=== PATIENT | male | born 1985 | race African-American/Black ===

== ENCOUNTER 2020-04-18 18:57 | Emergency (ER) | payer MEDICARE, MEDICAID ==
[2020-04-18] MEDS ORDERED: HYDROCODONE/ACETAMINOPHEN 5-325 MG TABLET PO ONE (20:27)
--- NOTE | 2020-04-18 20:29 | ER Document Report ---
HPI - HPI Patient complains to provider of: Ankle injury Time Seen by Provider: 04/18/20 20:23 Onset: Yesterday Onset/Duration: Sudden Quality of pain: Achy Pain Level: 2 Context: Patient states he was playing basketball yesterday and felt a snap in his left posterior ankle. Patient complains of pain that is gradually worsened since then. Associated Symptoms: denies: Vomiting Exacerbated by: Movement, Walking Relieved by: Denies Similar symptoms previously: No Recently seen / treated by doctor: No - ROS ROS below otherwise negative: Yes Systems Reviewed and Negative: Yes All other systems reviewed and negative - MUSCULOSKELETAL Musculoskeletal: REPORTS: Extremity pain. DENIES: Swelling - DERM Skin Color: Normal Skin Problems: None Past Medical History - General Information source: Patient - Social History Smoking Status: Current Every Day Smoker Frequency of alcohol use: Occasional Drug Abuse: None Occupation: [employer] Lives with: Family Family History: Reviewed & Not Pertinent Endocrine Medical History: Reports: Hx Diabetes Mellitus Type 2 Psychiatric Medical History: Reports: Hx Depression Traumatic Medical History: Reports: Hx Traumatic Brain Injury Past Surgical History: Reports: Hx Orthopedic Surgery - rt rotator cuff injury, collarbone - Immunizations Hx Diphtheria, Pertussis, Tetanus Vaccination: Yes - 2011 [facility] Provider Document - CONSTITUTIONAL Agree With Documented VS: Yes Exam Limitations: No Limitations General Appearance: WD/WN, No Apparent Distress - HEENT HEENT: Atraumatic, Normocephalic - NECK Neck: Normal Inspection - RESPIRATORY Respiratory: No Respiratory Distress - CARDIOVASCULAR Pulses: Normal: Dorsalis pedis - MUSCULOSKELETAL/EXTREMETIES Musculoskeletal/Extremeties: MAEW, Tender - Tenderness to left posterior ankle over Achilles tendon, Edema - 1+ edema to left ankle. negative: Eccymosis - NEURO Level of Consciousness: Awake, Alert, Appropriate Motor/Sensory: No Motor Deficit - DERM Integumentary: Warm, Dry, No Rash Course - Re-evaluation Re-evalutation: 04/18/20 21:37 Patient without any acute fracture although has tenderness over the Achilles tendon worrisome for possible tendinopathy, will immobilize and refer to orthopedics for further evaluation at this time. - Vital Signs Vital signs: Temp Pulse Resp BP Pulse Ox 99.7 F 111 H 20 168/134 H 93 04/18/20 19:13 04/18/20 19:13 04/18/20 19:13 04/18/20 19:13 04/18/20 19:13 - Diagnostic Test Radiology reviewed: Image reviewed, Reports reviewed Procedures - Immobilization Left Ankle Pre-Proc Neuro Vasc Exam: Normal Immobilizer type: Short Leg Posterior Performed by: PCT Post-Proc Neuro Vasc Exam: Normal Alignment checked and good: Yes Discharge - Discharge Clinical Impression: Left ankle pain Qualifiers: Chronicity: acute Qualified Code(s): M25.572 - Pain in left ankle and joints of left foot Achilles tendon injury Qualifiers: Encounter type: initial encounter Laterality: left Qualified Code(s): S86.002A - Unspecified injury of left Achilles tendon, initial encounter Condition: Stable Disposition: HOME, SELF-CARE Instructions: Use of Crutches ([facility]), Ice & Elevation ([facility]), Tendon Strain ([facility]) Additional Instructions: Return immediately for any new or worsening symptoms Followup with your primary care provider, call tomorrow to make a followup appointment Follow-up with orthopedics for further evaluation, call tomorrow to make a follow-up appointment Prescriptions: Naproxen [Naprosyn 250 Nmg Tablet] 1 tab PO BID #14 tablet Hydrocodone/Acetaminophen [[place] 5-325 mg Tablet] 1 tab PO Q6 PRN #8 tablet PRN Reason: Forms: Return to Work Referrals: SONIA CORRAL MD [ACTIVE PROVISIONAL STAFF] - Follow up as needed [facility] [Provider Group] - Follow up tomorrow [facility] [Provider Group] - Follow up tomorrow
--- NOTE | 2020-04-18 21:28 | RADIOLOGY REPORT (SQ) ---
EXAM DESCRIPTION: XR ANKLE 3 OR MORE VIEWS COMPLETED DATE/TME: 04/18/2020 20:27 CLINICAL HISTORY: 35 years, Male, left ankle pain EXAM DESCRIPTION: CLINICAL HISTORY: left ankle pain COMPARISON: None FINDINGS: 3 view(s) submitted. No fracture or dislocation is identified. Bone marrow attenuation is unremarkable. No radiopaque foreign body is identified. IMPRESSION: No acute fracture or dislocation.
[2020-04-18 21:59] VITALS: BP 181/98
== END 2020-04-18 21:58 | disposition home or self-care (01) ==
LOC: ER 18:57
DX: S86.002A Unspecified injury of left Achilles tendon, initial encounter (principal); M25.572 Pain in left ankle and joints of left foot; X58.XXXA Exposure to other specified factors, initial encounter; Y93.67 Activity, basketball; F17.200 Nicotine dependence, unspecified, uncomplicated; E11.9 Type 2 diabetes mellitus without complications
CPT/HCPCS: 99283; 73610; 29515; A9270

== ENCOUNTER → 2020-04-28 | Outpatient (CLI) | payer MEDICARE, MEDICAID ==
--- NOTE | 2020-04-28 12:22 | RADIOLOGY REPORT (SQ) ---
EXAM DESCRIPTION: MRI LT LOWER JOINT WITHOUT IMAGES COMPLETED DATE/TIME: 04/28/2020 11:58 am REASON FOR STUDY: (S86.012A)STRAIN OF LEFT ACHILLES TENDON, INITIAL ENCOUNTER S86.012A STRAIN OF LE FT ACHILLES TENDON, INITIAL ENCOUNTER COMPARISON: None. TECHNIQUE: Left ankle images acquired and stored on PACS. Multiplanar images include fat sensitive s equences as T1, fluid sensitive sequences as FST2/STIR, cartilage sensitive sequences as FSPD, and gr adient echo sequences. LIMITATIONS: None. FINDINGS: BONE MARROW: No alteration of signal to suggest marrow replacement or edema. No occult fra cture. No large osteophytes. EFFUSIONS: No subtalar or tibiotalar effusions. No loose bodies. OSSEOUS ARTICULATIONS: Normal tibiotalar, subtalar, talonavicular and calcaneocuboid joints. TALAR DOME AND TIBIAL PLAFOND: Normal cartilage. No osteochondral defect. ACHILLES TENDON: Complete rupture of the tendon about 6.5 cm proximal to the insertion. The proximal stump is at the edge of the [id number] with a gap of approximately 7 cm. No significant bursal f luid. TIBIALIS ANTERIOR TENDON: Intact without edema at the 1st MT attachment. TIBIALIS POSTERIOR TENDON: Normal morphology and no edema at the navicular attachment. No tendon meza th fluid. FLEXOR HALLUCIS LONGUS AND FLEXOR DIGITORUM TENDONS: Normal morphology and no tendon sheath fluid. No edema of the os trigonum. PERONEUS LONGUS AND BREVIS TENDON: Normal morphology and no tendon sheath fluid. No subluxation. ATFL, CFL, PTFL: Intact. No thickening or signal alteration. No jose-ligamentous fluid. DELTOID LIGAMENT: Visualized components intact. TARSAL TUNNEL: No masses. No muscle atrophy. SINUS TARSI: No fluid. No reactive marrow edema or erosions. PLANTAR FASCIA: No signal alteration or tear. ADJACENT SOFT TISSUES: No masses. OTHER: No other significant finding. IMPRESSION: Rupture of the Achilles tendon. TECHNICAL DOCUMENTATION: JOB ID: [id number] 2010 [employer]- All Rights Reserved Reading location - IP/workstation name: [email or web address]
== END ==
LOC: RAD 10:34
PROVIDERS: ATTEND Orthopaedic Surgery
DX: S86.012A Strain of left Achilles tendon, initial encounter (principal); X58.XXXA Exposure to other specified factors, initial encounter

== ENCOUNTER 2020-06-02 21:04 | Emergency (ER) | payer MEDICARE, MEDICAID ==
[2020-06-02] MEDS ORDERED: RINGERS SOLUTION,LACTATED 1,000 ML IV ONE (21:49)
[2020-06-02] MEDS ORDERED: ONDANSETRON HCL INJ/PF 4 MG/2 ML SDV IV ONE (21:50)
[2020-06-02] MEDS ORDERED: MORPHINE SULFATE 10 MG/ML INJ IV ONE (21:50)
--- NOTE | 2020-06-02 21:51 | ER Document Report ---
ED Medical Screen (RME) - General Chief Complaint: Abdominal Pain Stated Complaint: ABDOMINAL PAIN, VOMITING, LOSS OF APPETITE Time Seen by Provider: 06/02/20 21:43 Primary Care Provider: KATYA,JAZMÍN [Primary Care Provider] - Follow up as needed Mode of Arrival: Wheelchair Information source: Patient Notes: HPI; 85-year-old male presents emergency room complaining of sudden onset of abdominal pain with nausea and vomiting that started after eating his breakfast this morning. Denies any bad food. No one else at home is ill states is not been able to tolerate anything p.o. today. Denies any recent travel. No COVID- 19 exposure. Also complains of fevers with chills. Did not take any medications for his symptoms. PE: Alert and oriented x3. Mild distress noted. Lungs: Clear to auscultation without rales, rhonchi, wheezes. Heart tachycardic without murmurs, rubs, gallops. I have greeted and performed a rapid initial assessment of this patient. A com prehensive ED assessment and evaluation of the patient, analysis of test results and completion of the medical decision making process will be conducted by additional ED providers. I have specifically instructed the patient or family members with the patient to immediately return to any nursing staff should anything change in the patient's condition or with their chief complaint. TRAVEL OUTSIDE OF THE [place] IN LAST 30 DAYS: No - Related Data Allergies/Adverse Reactions: No Known Allergies Allergy (Verified 11/23/13 09:30) Past Medical History Endocrine Medical History: Reports: Hx Diabetes Mellitus Type 2 Psychiatric Medical History: Reports: Hx Depression Traumatic Medical History: Reports: Hx Traumatic Brain Injury Past Surgical History: Reports: Hx Orthopedic Surgery - rt rotator cuff injury, collarbone - Immunizations Hx Diphtheria, Pertussis, Tetanus Vaccination: Yes - 2011 Physical Exam - Vital signs Vitals: Temp Pulse Resp BP Pulse Ox 99.5 F 129 H 20 141/96 H 93 06/02/20 21:20 06/02/20 21:20 06/02/20 21:20 06/02/20 21:20 06/02/20 21:20 Course - Vital Signs Vital signs: Temp Pulse Resp BP Pulse Ox 99.5 F 129 H 20 141/96 H 93 06/02/20 21:20 06/02/20 21:20 06/02/20 21:20 06/02/20 21:20 06/02/20 21:20 Doctor's Discharge - Discharge Referrals: LOCALMD,NO [Primary Care Provider] - Follow up as needed
[2020-06-02 23:14] LABS: APPEARANCE,URINE CLEAR; BILIRUBIN,URINE NEGATIVE (NEGATIVE); COLOR,URINE YELLOW; GLUCOSE, URINE >=500 mg/dL (NEGATIVE); KETONES,URINE 80 mg/dL (NEGATIVE); LEUKOCYTE ESTERASE,URINE NEGATIVE (NEGATIVE); NITRITE,URINE NEGATIVE (NEGATIVE); PROTEIN,URINE 100 mg/dL (NEGATIVE); URINE SPECIFIC GRAVITY 1.033; UROBILINOGEN,URINE NEGATIVE mg/dL (<2.0)
[2020-06-02 23:19] LABS: ABSOLUTE BASOPHILS # (AUTO) 0.1 10^3/uL (0.0-0.2); ABSOLUTE EOSINOPHILS # (AUTO) 0.1 10^3/uL (0.0-0.6); ABSOLUTE LYMPHOCYTES (AUTO) 2.4 10^3/uL (0.5-4.7); ABSOLUTE MONOCYTES (AUTO) 0.9 10^3/uL (0.1-1.4); ABSOLUTE NEUT (AUTO) 9.5 10^3/uL (1.7-8.2); EOSINOPHILS % (AUTO) 0.4 % (0-6); HEMATOCRIT 45.2 % (37.9-51.0); LYMPHOCYTES % (AUTO) 18.3 % (13-45); MEAN CORPUSCULAR VOLUME 82 fl (80-97); MONOCYTES % (AUTO) 6.7 % (3-13); PLATELET COUNT 265 10^3/uL (150-450); RED BLOOD COUNT 5.55 10^6/uL (4.35-5.55); SEGMENTED NEUTROPHILS % (AUTO) 73.6 % (42-78); TOTAL CELLS COUNTED % (AUTO) 100 %; WHITE BLOOD COUNT 12.9 10^3/uL (4.0-10.5)
[2020-06-02 23:25] LABS: ALBUMIN 4.9 g/dL (3.5-5.0); ALKALINE PHOSPHATASE 112 U/L (38-126); ASPARTATE AMINO TRANSFERASE 51 U/L (17-59); BILIRUBIN,DIRECT 0.5 mg/dL (0.0-0.4); BLOOD UREA NITROGEN 11 mg/dL (7-20); CARBON DIOXIDE 11 mmol/L (22-30); CHLORIDE 99 mmol/L (98-107); GLUCOSE 337 mg/dL (75-110); POTASSIUM 5.4 mmol/L (3.6-5.0); TOTAL PROTEIN 9.4 g/dL (6.3-8.2)
[2020-06-02 23:33] LABS: ANION GAP 25 (5-19)
[2020-06-03 00:05] LABS: HEMOGLOBIN 15.1 g/dL (13.5-17.0); MEAN CORPUSCULAR HEMOGLOBIN 27.2 pg (27.0-33.4); MEAN CORPUSCULAR HGB CONC 33.4 g/dL (32.0-36.0)
[2020-06-03] MEDS ORDERED: ONDANSETRON HCL INJ/PF 4 MG/2 ML SDV IV ONE (01:45)
[2020-06-03] MEDS ORDERED: MORPHINE SULFATE 10 MG/ML INJ IV ONE (02:00)
[2020-06-03] MEDS ORDERED: NORMAL SALINE 1000 ML 1,000 ML IV ONE (02:20)
--- NOTE | 2020-06-03 03:23 | RADIOLOGY REPORT (SQ) ---
EXAM DESCRIPTION: CT ABDOMEN PELVIS WITH IV CONTRAST COMPLETED DATE/TME: 06/02/2020 21:48 CLINICAL HISTORY: 35 years, Male, abdominal pain COMPARISON: None. TECHNIQUE: Postcontrast images of the abdomen and pelvis were obtained utilizing 100 mL Omnipaque 350 intravenously. Images stored on PACS. All CT scanners at this facility use dose modulation, iterative reconstruction, and/or weight based dosing when appropriate to reduce radiation dose to as low as reasonably achievable (ALARA). [facility]: Dose Right [facility]: CareDose [facility]: Dose Right [facility]: Teradose 4D [facility]: [employer] LIMITATIONS: None. FINDINGS: The visualized lung bases are clear. There is incidental mild bilateral gynecomastia. Liver is enlarged to 24 cm in length and is diffusely fatty infiltrated. No discrete liver lesion is seen. Portal vein is patent. The spleen is within normal limits. There is mild peripancreatic fat stranding in the pancreas is slightly heterogeneous in appearance, most consistent with pancreatitis. The gallbladder appears within normal limits on this exam. There is no abnormal biliary ductal dilation identified. The kidneys and adrenal glands are within normal limits. Prostate gland is normal in size. There is no free fluid or free air. There is no abnormal bowel dilation. The appendix is within normal limits. There are no pathologically enlarged lymph nodes. Abdominal aorta is normal in caliber. There is no acute or suspicious bony abnormality. IMPRESSION: 1. Mild peripancreatic fat stranding and pancreatic parenchymal heterogeneity, most consistent with pancreatitis. I see no complicating feature. 2. Enlarged, fatty infiltrated liver. TECHNICAL DOCUMENTATION: Quality ID # [id number]: Final reports with documentation of one or more dose reduction techniques (e.g., Automated exposure control, adjustment of the mA and/or kV according to patient size, use of iterative reconstruction technique) copyright 2011 [employer] All Rights Reserved
[2020-06-03] MEDS ORDERED: SUCRALFATE 1 GM TABLET PO ONE (03:40)
[2020-06-03] MEDS ORDERED: PROMETHAZINE HCL 25 MG TABLET PO ONE (03:40)
[2020-06-03] MEDS ORDERED: FAMOTIDINE 20 MG TABLET PO ONE (03:40)
[2020-06-03 05:46] VITALS: BP 148/87
--- NOTE | 2020-06-03 06:27 | ER Document Report ---
ED GI/ - General Chief Complaint: Abdominal Pain Stated Complaint: ABDOMINAL PAIN, VOMITING, LOSS OF APPETITE Time Seen by Provider: 06/02/20 21:43 Primary Care Provider: BABAR HERNANDEZ MD [COMMUNITY BASED STAFF] - 06/05/20 Mode of Arrival: Wheelchair Notes: Patient is a 35-year-old male that comes emergency department for chief complaint of mid upper abdominal pain, nausea, and vomiting that started this morning. He states that he vomited multiple times at home and continued to feel worse so he came in for evaluation. He denies fever, chest pain, difficulty breathing, abnormal bowel movements, hematemesis, hematochezia. He has not had any abdominal surgeries. Past medical history of type 2 diabetes. He admits to frequent alcohol, denies recreational drugs. He does smoke. TRAVEL OUTSIDE OF THE [place] IN LAST 30 DAYS: No - Related Data Allergies/Adverse Reactions: No Known Allergies Allergy (Verified 11/23/13 09:30) Past Medical History - General Information source: Patient - Social History Smoking Status: Never Smoker Frequency of alcohol use: None Drug Abuse: None Lives with: Family Family History: Reviewed & Not Pertinent Endocrine Medical History: Reports: Hx Diabetes Mellitus Type 2 Psychiatric Medical History: Reports: Hx Depression Traumatic Medical History: Reports: Hx Traumatic Brain Injury Past Surgical History: Reports: Hx Orthopedic Surgery - rt rotator cuff injury, collarbone - Immunizations Hx Diphtheria, Pertussis, Tetanus Vaccination: Yes - 2011 Review of Systems - Review of Systems Constitutional: No symptoms reported EENT: No symptoms reported Cardiovascular: No symptoms reported Respiratory: No symptoms reported Gastrointestinal: See HPI Genitourinary: No symptoms reported Male Genitourinary: No symptoms reported Musculoskeletal: No symptoms reported Skin: No symptoms reported Hematologic/Lymphatic: No symptoms reported Neurological/Psychological: No symptoms reported Physical Exam - Vital signs Vitals: Temp Pulse Resp BP Pulse Ox 99.5 F 129 H 20 141/96 H 93 06/02/20 21:20 06/02/20 21:20 06/02/20 21:20 06/02/20 21:20 06/02/20 21:20 - Notes Notes: GENERAL: Alert, interacts well. No acute distress. HEAD: Normocephalic, atraumatic. EYES: Pupils equal, round, and reactive to light. Extraocular movements intact. ENT: Oral mucosa parched, tongue midline. Oropharynx unremarkable. Airway patent. NECK: Full range of motion. Supple. Trachea midline. No lymphadenopathy. LUNGS: Clear to auscultation bilaterally, no wheezes, rales, or rhonchi. No respiratory distress. Non-tender chest wall. HEART: Borderline tachycardic, normal rhythm, no murmur ABDOMEN: There is some generalized upper abdominal tenderness with mild tenderness but no guarding or rebound tenderness. Notes significant distention. Bowel sounds present throughout. EXTREMITIES: Moves all 4 extremities spontaneously. No edema, normal radial and dorsalis pedis pulses bilaterally. No cyanosis. BACK: no cervical, thoracic, lumbar midline tenderness. No saddle anesthesia, normal distal neurovascular exam. Moves all extremities in full range of motion. NEUROLOGICAL: Alert and oriented x3. Normal speech. Cranial nerves II through XII grossly intact. Strength 5/5 in all extremities. PSYCH: Normal affect, normal mood. SKIN: Warm, dry, normal turgor. No rashes or lesions noted. Course - Re-evaluation Re-evalutation: After I saw patient patient states that he feels much better after initial IV fluids and pain/nausea medication. He is alert and well-appearing. He has some generalized upper abdominal tenderness on exam but otherwise his exam is unremarkable except for borderline tachycardia and very dry mucous membranes. CBC shows leukocytosis at 12.9 with elevation of neutrophils but no bandemia. Chemistry shows low bicarbonate at 11, anion gap is elevated at 25, blood glucose is elevated at 337. Lipase is elevated at greater than 500. I did review CAT scan from triage as well and this shows mild pancreatitis with no complicating features. I reevaluated patient. He has been given additional fluids, he is requesting P.o. fluids and he states he feels so much better. Patient given p.o. fluids, p.o. medications, he is requesting to go home. Because his initial chemistry was abnormal with a low bicarbonate, elevated anion gap, elevated glucose I did want to repeat this. Patient was patient and we attempted to repeat this twice but hemolyzed twice. Patient has been drinking fluids the entire time, and s tates that he feels good, he states his right is needing to go home, he is requesting that we discharge him at this point. Patient has been very cooperative up to this point, he looks great on my reevaluation again, he is tolerating p.o. without any difficulty, he has no current abdominal pain, shamika sea, or complaints. Based on this even though unfortunately I could not repeat the blood chemistry patient has been here for an extended period of time with good monitoring, he has received a lot of fluids at this point, I do suspect his chemistry would be much improved. However I stressed strict return precautions at length. Patient states he will return if he worsens in any way. - Vital Signs Vital signs: Temp Pulse Resp BP Pulse Ox 98.2 F 111 H 14 148/87 H 96 06/03/20 05:37 06/03/20 05:37 06/03/20 05:37 06/03/20 05:37 06/03/20 05:37 - Laboratory Result Diagrams: 06/02/20 22:52 06/02/20 22:52 Laboratory results interpreted by me: 06/02/20 06/02/20 06/02/20 21:55 22:52 22:52 WBC 12.9 H Absolute Neuts (auto) 9.5 H Sodium 134.5 L Potassium 5.4 H Carbon Dioxide 11 L Anion Gap 25 H Glucose 337 H Direct Bilirubin 0.5 H ALT 80 H Total Protein 9.4 H Lipase 584.7 H Urine Protein 100 H Urine Glucose (UA) >=500 H Urine Ketones 80 H Urine Blood MODERATE H Discharge - Discharge Clinical Impression: Dehydration Vomiting Qualifiers: Vomiting type: unspecified Vomiting Intractability: non-intractable Nausea presence: with nausea Qualified Code(s): R11.2 - Nausea with vomiting, unspecified Abdominal pain Qualifiers: Abdominal location: generalized Qualified Code(s): R10.84 - Generalized abdominal pain Pancreatitis Qualifiers: Chronicity: acute Pancreatitis type: unspecified pancreatitis type Acute pancre atitis complication: unspecified Qualified Code(s): K85.90 - Acute pancreatitis without necrosis or infection, unspecified Disposition: HOME, SELF-CARE Additional Instructions: Your work-up shows dehydration and pancreatitis. Do not drink any alcohol, if you do this may return. It is important that you start with clear liquid diet for the next couple of days to rest your pancreas and recover from this. I recommend the Carafate for your stomach, Zofran for nausea, pain medication if needed for pain. Follow-up closely with primary care for recheck. Return if you worsen including returned or worsening pain, vomiting, fever, or any other concerning or worsening symptoms. Prescriptions: Sucralfate [Carafate 1 gm Tablet] 1 gm PO QID #20 tablet Oxycodone HCl/Acetaminophen [Percocet 5-325 mg Tablet] 1 tab PO TID PRN #15 tab PRN Reason: Ondansetron [Zofran Odt 4 mg Tablet] 1 - 2 tab PO Q4H PRN #15 tab.rapdis PRN Reason: For Nausea/Vomiting Referrals: BABAR HERNANDEZ MD [COMMUNITY BASED STAFF] - 06/05/20
== END 2020-06-03 06:32 | disposition home or self-care (01) ==
LOC: ER 21:04
DX: K85.90 Acute pancreatitis without necrosis or infection, unspecified (principal); R11.2 Nausea with vomiting, unspecified; R10.84 Generalized abdominal pain; E86.0 Dehydration; K76.0 Fatty (change of) liver, not elsewhere classified; E11.65 Type 2 diabetes mellitus with hyperglycemia
CPT/HCPCS: 99284; 96361; 96374; 96375; 36415; 83690; 85025; 80053; 81001; 74177; A9270 ×3; J2270; J2405; J7030; J7120